=== PATIENT | female | born 1970 | race Caucasian/White ===

== ENCOUNTER 2017-11-13 11:29 | Outpatient (CLI) | payer OTHER ==
[~2017-11-13 11:29] MED LIST: KETO10TA2 PO; MOTRIN800 MG PO; SYNTHROID75 MCG; [UNRECOGNIZED DRUG - OTHER]
== END 2017-11-13 11:34 | disposition home or self-care (01) ==
LOC: SONOGRAMA 11:29
DX: R10.9 Unspecified abdominal pain (principal); E04.1 Nontoxic single thyroid nodule

== ENCOUNTER 2019-06-08 08:19 | Outpatient (CLI) | payer OTHER | END 2019-06-08 12:47 | disposition home or self-care (01) | LOC: SONOGRAMA 08:19 | DX: R10.84 Generalized abdominal pain (principal) ==

== ENCOUNTER 2019-08-09 07:57 | Emergency (ER) | payer OTHER ==
[~2019-08-09] VITALS: Ht 160 cm; Wt 88.5 kg
[2019-08-09] MEDS ORDERED: COZAAR25 MG (08:08)
[2019-08-09] MEDS ORDERED: LIPITOR20 MG (08:09)
[2019-08-09] MEDS ORDERED: TOPROL XL25 MG (08:09)
[2019-08-09] MEDS ORDERED: KETO10TA2 PO (09:57)
[2019-08-09] MEDS ORDERED: ORPHENADRINE C100 MG PO (09:57)
[2019-08-09] MEDS ORDERED: CYCLOBENZAPRINE10 MG PO (09:57)
== END 2019-08-09 11:15 | disposition home or self-care (01) ==
LOC: ER 07:57
DX: M94.0 Chondrocostal junction syndrome [Tietze] (principal)

== ENCOUNTER 2020-06-15 15:08 | Outpatient (CLI) | payer OTHER ==
[~2020-06-15 15:08] MED LIST changes: +COZAAR25 MG; +CYCLOBENZAPRINE10 MG PO; +LIPITOR20 MG; +ORPHENADRINE C100 MG PO; +TOPROL XL25 MG
== END 2020-06-15 15:20 | disposition home or self-care (01) ==
LOC: SONOGRAMA 15:08 → MAMO-SONO 15:15 → SONOGRAMA 15:20
PROVIDERS: ATTEND Internal Medicine Cardiovascular Disease
DX: R10.84 Generalized abdominal pain (principal)

== ENCOUNTER 2021-01-25 09:52 | Outpatient (CLI) | payer OTHER | END 2021-01-25 10:11 | disposition home or self-care (01) | LOC: MRI 09:52 | PROVIDERS: ATTEND Internal Medicine Cardiovascular Disease | DX: G54.0 Brachial plexus disorders (principal) | CPT/HCPCS: 73221 ==